=== PATIENT | female | born 1975 ===

== ENCOUNTER 2019-09-28 15:37 | Observation (INO) | payer SELFPAY ==
[2019-09-28 16:17] LABS: Mean Corpuscular HGB CONC 34.1 g/dL (32.0-36.0); Mean Corpuscular Hemoglobin 32.2 pg (27.0-31.0); Mean Corpuscular Volume 94.5 fL (78.0-98.0); Mean Platelet Volume 9.2 fL (7.4-10.4); Platelet Count 228 thou/uL (130-400); RBC Distribution Width 11.9 % (11.5-14.5); Red Blood Cell (RBC) Count 4.96 mill/uL (4.20-5.40); White Blood Cell (WBC) Count 15.7 thou/uL (4.8-10.8)
[2019-09-28 16:35] LABS: Band 4 % (5-11); Eosinophils 1 % (0-10); Lymphocytes 10 % (21-51); MDiff Complete? YES; Monocytes 2 % (0-10); Neutrophil 83 % (42-75); Platelet Morphology Comment Appears Adequate; RBC Morphology Normal
[2019-09-28 16:41] LABS: ALT (SGPT) 15 U/L (8-55); AST (SGOT) 16 U/L (5-34); Albumin 4.7 g/dL (3.5-5.0); Alkaline Phosphatase 89 U/L (40-110); Anion Gap 14 mmol/L (10-20); BUN (Urea Nitrogen) 14 mg/dL (7.0-18.7); Bilirubin, Total 0.5 mg/dL (0.2-1.2); CK (CPK) 61 U/L (29-168); Calc. Creatinine Clearance 0 mL/min (70-130); Calcium 9.5 mg/dL (7.8-10.44); Carbon Dioxide 24 mmol/L (22-29); Chloride 105 mmol/L (98-107); Estimated GFR-MDRD 85; Globulin 2.7 g/dL (2.4-3.5); Glucose 122 mg/dL (70-105); Potassium 4.2 mmol/L (3.5-5.1); Protein, Total 7.4 g/dL (6.0-8.3); Sodium 139 mmol/L (136-145)
--- NOTE | 2019-09-28 17:12 | RAD ---
Chest one view HISTORY: Chest pain. FINDINGS: No comparison. Cardiac silhouette is magnified by projection. Pulmonary vasculature are unr emarkable. Mediastinum is midline. No lobar consolidation or evidence of pneumothorax. Oval density projecting over the left axilla may represent artifact or a calcified lymph node. IMPRESSION: No active cardiopulmonary abnormalities are demonstrated.
[2019-09-28] MEDS ORDERED: Acetaminophen 500 MG TAB ONE ×2 (18:10→18:15)
[2019-09-28] MEDS ORDERED: Ondansetron PF 4 MG/2 ML Vial ONE (18:10)
[2019-09-28] MEDS ORDERED: Sucralfate 1 GM/10 ML UDCUP ONE (18:10)
[2019-09-28] MEDS ORDERED: Famotidine 20 MG TAB ONE (18:10)
[2019-09-28 20:26] LABS: Troponin I 0.019 ng/mL (< 0.028)
[2019-09-28] MEDS ORDERED: Dextrose 50% Abboject 50 ML SYRINGE SLOW IVP PRN (20:29)
[2019-09-28] MEDS ORDERED: HumaLOG 300 UNITS/3 ML VIAL SC PRN ×2 (20:29)
[2019-09-28] MEDS ORDERED: Dextrose 5% in Water 1,000 ML IV PRN (20:29)
[2019-09-28] MEDS ORDERED: Ondansetron ODT 4 MG TAB PO PRN (20:31)
[2019-09-28] MEDS ORDERED: Ondansetron PF 4 MG/2 ML Vial IVP PRN (20:31)
[2019-09-28 21:43] VITALS: BMI 26.8
[2019-09-28] MEDS: Famotidine/PF 20 mg/2ml Vial SLOW IVP SCH (22:10)
[2019-09-28] MEDS: Sodium Chloride 0.9% 1,000 ML IV SCH (22:12)
[2019-09-28 23:01] LABS: Lactic Acid 2.8 mmol/L (0.5-2.2)
--- NOTE | 2019-09-28 23:03 | HP ---
TIME OF ASSESSMENT: 1899. CHIEF COMPLAINT: Chest pain. HISTORY OF PRESENT ILLNESS: Ms. Chen is a 44-year-old woman, with a known history of CAD requiring stents 3 years ago following an PR, who presents with complaints of chest pain very similar to what she experienced 3 years ago with her first PR. The patient states the pain started while she was at work today and was in the center of her chest, substernal and nonradiating. Reports the pain was a 6/10 in severity and currently it is 2/10. The patient took 3 baby aspirins before coming into the emergency department. She recently moved from [place] and has not seen a [employer] school professional since approximately 6 months ago. She states last investigations done were about 2 years ago. She has known history of hypertension, which she states is under good control and also has diabetes mellitus for which she takes metformin but never checks her blood glucose. She also does not adhere to any strict diet. The patient states she did experience some associated diaphoresis. Reports feeling slightly lightheaded. Denies any associated shortness of breath. Denies any recent cough or hemoptysis. No lower leg swelling or calf tenderness. All other review of systems are negative. The patient states that she currently takes baby aspirin, Plavix, and statin. She was previously placed on medications which she was told it would help with her heart given the fact that she had small coronary artery vessels that could not be stented. She apparently had her second PR in August 2016. First PR was in February 2016 and she had 2 stents at that time to the LAD and OM. EMERGENCY DEPARTMENT COURSE: In the emergency department, the patient underwent an EKG that demonstrated normal sinus rhythm with a heart rate of 93. She had no ST changes or T-wave abnormalities. She was given sucralfate, famotidine, extra-strength Tylenol, and Zofran. LABORATORY STUDIES: Done showed a white count of 15.7, hemoglobin of 16, hematocrit of 46.8. Electrolytes unremarkable. BUN 14, creatinine 0.74, GFR 85. LFTs unremarkable. Initial and second troponin negative. Albumin 4.7, lipase 10. BNP 14.5. IMAGING DATA: Done included a chest x-ray which showed no active cardiopulmonary abnormalities. PAST MEDICAL HISTORY: 1. Coronary artery disease. 2. PR x2. 3. Hypertension. 4. Type 2 diabetes mellitus. 5. Heavy tobacco use. PAST SURGICAL HISTORY: Coronary artery stents x2, LAD and OM. FAMILY HISTORY: Her father of coronary artery disease. SOCIAL HISTORY: The patient denies any heavy alcohol use or illicit drug use. She does admit to smoking 1 pack per day for the last 15 years. PHYSICAL EXAMINATION: GENERAL: The patient appears well developed, well nourished, who is in no acute distress. VITAL SIGNS: Temperature 98.3, pulse 86, blood pressure 137/87, respirations 18 , O2 saturation 98% on room air. HEENT: Normocephalic and atraumatic. Pupils are equal, round, and reactive to light. Sclerae without icterus. Oropharynx is clear. NECK: Supple without lymphadenopathy. LUNGS: Clear to auscultation bilaterally without any wheezes, rales, or rhonchi. CARDIAC: Regular rate and rhythm. No audible murmurs, rubs, or gallops. No chest wall tenderness on palpation. LUNGS: Clear to auscultation bilaterally without any wheezes, rales, rhonchi. ABDOMEN: Soft, nontender, nondistended. Normoactive bowel sounds present. No guarding or rigidity. No renal angle tenderness. EXTREMITIES: No lower leg swelling or edema. NEUROLOGIC: Alert and oriented x3. No neuro deficits on exam. SKIN: Warm and dry. INVESTIGATIONS: As mentioned above in HPI. IMPRESSION AND PLAN: Ms. Chen is a pleasant 44-year-old woman who is being admitted for management of the following; 1. Acute coronary syndrome rule out. The patient with multiple risk factors including previous myocardial infarctions x2, coronary artery disease requiring 2 stents in the past with known occlusions that could not be addressed surgically. She was recommended medical management per [employer] school professional in [place]. The pain today is similar to which she experienced in the past with PR. Troponin negative x2. We will continue to trend troponins. Given her complicated history, we will need to obtain previous records and consultation is placed to Cardiology. The patient states her last echo was more than 10 years ago, therefore we will obtain an echo. We will check TSH, magnesium, and lipid panel. The patient is pain-free at present. We will keep her n.p.o. at midnight. 2. Hypertension. The patient states this is well controlled on current medications, which we will resume once verified. Continue to monitor blood pressure. 3. Type 2 diabetes mellitus. The patient does not check glucose at home. We will initiate insulin sliding scale, hold metformin and monitor blood glucose. 4. Leukocytosis. The patient's white count of 15.7, neutrophil of 83. We will obtain urinalysis and urine culture. Chest x-ray was negative. We will add on lactic acid. No clear source of infection at this present time. We will continue to monitor. 5. Gastrointestinal prophylaxis with famotidine. 6. Deep venous thrombosis prophylaxis with mechanical sequential compression devices. 7. Code status is full. Surrogate decision maker could not be established at this present time. Case to be discussed with attending for further recommendations. Job ID: [id number] MTDD
[2019-09-28 23:10] LABS: Troponin I 0.015 ng/mL (< 0.028)
[2019-09-29 00:20] LABS: Bacteria/HPF None Seen HPF (None Seen); Bilirubin Negative (Negative); Blood, Urine Negative (Negative); Clarity Clear (Clear); Glucose, Urine (Dipstick) Normal (Negative); Leukocyte Negative Leu/uL (Negative); Nitrite Negative (Negative); Protein, Urine (Dipstick) Negative (Neg-Trace); RBC/HPF 0-3 HPF (0-3); Squamous Epithelial 0-3 HPF (0-3); Urobilinogen Normal mg/dL (Less than 2); WBC/HPF 0-3 HPF (0-3)
[2019-09-29 00:22] LABS: Urine Culture Reflex No No
[2019-09-29 00:29] LABS: Amphetamine Not Detected (NotDetected); Barbiturates Screen Not Detected (NotDetected); Benzodiazepine Screen Not Detected (NotDetected); Cocaine Metabolite Screen Not Detected (NotDetected); Medtox Control Line Valid? VALID (VALID); Medtox Reader # READER 1; Methadone Not Detected (NotDetected); Methamphetamine Not Detected (NotDetected); Opiate Screen Not Detected (NotDetected); Oxycodone Screen Not Detected (NotDetected); Phencyclidine (PCP) Not Detected (NotDetected); THC/Cannabinoid Screen Not Detected (NotDetected); Tricyclic Screen Not Detected (NotDetected)
[2019-09-29 05:19] LABS: #Eosinphils 0.1 thou/uL (0.0-0.7); #Lymphocytes 1.3 thou/uL (1.20-3.40); #Monocytes 0.3 thou/uL (0.11-0.59); #Neutrophils 4.7 thou/uL (1.40-6.50); %Basophils 0.3 % (0.0-1.0); %Eosinophils 1.6 % (0.0-10.0); %Lymphocytes 19.6 % (21.0-51.0); %Monocytes 5.1 % (0.0-10.0); %Neutrophils 73.5 % (42.0-75.0); Hemoglobin 13.2 g/dL (12.0-16.0); Mean Corpuscular HGB CONC 32.6 g/dL (32.0-36.0); Mean Corpuscular Hemoglobin 31.1 pg (27.0-31.0); Mean Corpuscular Volume 95.3 fL (78.0-98.0); Mean Platelet Volume 9.5 fL (7.4-10.4); Platelet Count 184 thou/uL (130-400); Red Blood Cell (RBC) Count 4.25 mill/uL (4.20-5.40); White Blood Cell (WBC) Count 6.4 thou/uL (4.8-10.8)
[2019-09-29 05:35] LABS: Anion Gap 12 mmol/L (10-20); BUN (Urea Nitrogen) 9 mg/dL (7.0-18.7); Calc. Creatinine Clearance 127 mL/min (70-130); Calcium 8.4 mg/dL (7.8-10.44); Carbon Dioxide 21 mmol/L (22-29); Chloride 107 mmol/L (98-107); Estimated GFR-MDRD Greater than 90; Glucose 86 mg/dL (70-105); Potassium 3.5 mmol/L (3.5-5.1); Sodium 136 mmol/L (136-145)
[2019-09-29] MEDS: metFORMIN 500 MG TAB PO SCH ×2 (08:53→18:16)
[2019-09-29] MEDS: Famotidine/PF 20 mg/2ml Vial SLOW IVP SCH (08:53)
[2019-09-29] MEDS ORDERED: Clopidogrel Bisulfate 75 MG TAB PO SCH (09:00)
[2019-09-29] MEDS ORDERED: Aspirin 81 mg Enteric Coated Tablet PO SCH (09:00)
--- NOTE | 2019-09-29 11:52 | PDOC.HOSPP ---
- Subjective Encounter Date: 09/29/19 Encounter Time: 07:30 Subjective: Patient seen and examined. No new complaints. No overnight events - Objective Vital Signs & Weight: Vital Signs (12 hours) Temp Pulse Resp BP Pulse Ox 09/29/19 11:00 98.5 F 72 20 111/58 L 97 09/29/19 10:01 99 09/29/19 07:17 97.9 F 74 18 98/57 L 99 09/29/19 04:47 98.3 F 78 20 106/56 L 97 Weight Weight 150 lb 8 oz I&O: 09/28/19 09/29/19 09/30/19 06:59 06:59 06:59 Intake Total 760 Balance 760 Result Diagrams: 09/29/19 04:41 09/29/19 04:41 Additional Labs: Accuchecks 09/29/19 09/28/19 11:05 22:09 POC Glucose 86 166 H Radiology Reviewed by me: Yes EKG Reviewed by me: Yes Hospitalist ROS - Review of Systems ENT: denies: ear pain, ear discharge, nose pain, nose discharge, nose congestion , mouth pain, mouth swelling, throat pain, throat swelling, other Respiratory: denies: cough, dry, shortness of breath, hemoptysis, SOB with excertion, pleuritic pain, sputum, wheezing, other Cardiovascular: denies: chest pain, palpitations, orthopnea, paroxysmal noc. dyspnea, edema, light headedness, other Gastrointestinal: denies: nausea, vomiting, abdominal pain, diarrhea, constipation, melena, hematochezia, other Genitourinary: denies: dysuria, frequency, incontinence, hematuria, retention, other Musculoskeletal: denies: neck pain, shoulder pain, arm pain, back pain, hand pain, leg pain, foot pain, other - Medication Medications: Active Medications Generic Name Dose Route Start Last Admin Trade Name Freq PRN Reason Stop Dose Admin Aspirin 81 mg 09/29/19 09:00 09/29/19 08:53 Ecotrin PO 81 mg DAILY DIEGO Administration Clopidogrel Bisulfate 75 mg 09/29/19 09:00 09/29/19 08:53 Plavix PO 75 mg DAILY DIEGO Administration Famotidine 20 mg 09/28/19 21:00 09/29/19 08:53 Pepcid SLOW IVP 20 mg Q12HR DIEGO Administration Sodium Chloride 1,000 mls @ 65 mls/hr 09/28/19 20:45 09/28/19 22:12 Normal Saline 0.9% IV 1,000 mls .[id number] DIEGO Administration Metformin HCl 500 mg 09/29/19 08:00 09/29/19 08:53 Glucophage PO Not Given BID- DIEGO - Exam General Appearance: NAD, awake alert Eye: PERRL, anicteric sclera ENT: normocephalic atraumatic, no oropharyngeal lesions Neck: supple, symmetric, no JVD Heart: RRR, no murmur, no gallops, no rubs Respiratory: CTAB, no wheezes, no rales, no ronchi Gastrointestinal: soft, non-tender, non-distended, normal bowel sounds Extremities: no cyanosis, no clubbing, no edema Skin: normal turgor, no lesions Neurological: no focal deficits Musculoskeletal: normal tone, normal strength Psychiatric: normal affect, normal behavior Hosp A/P (1) Chest pain Code(s): R07.9 - CHEST PAIN, UNSPECIFIED Status: Acute (2) Diabetes type 2, controlled Code(s): E11.9 - TYPE 2 DIABETES MELLITUS WITHOUT COMPLICATIONS Status: Chronic 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
--- NOTE | 2019-09-29 15:45 | CON ---
DATE OF CONSULTATION: REASON FOR CONSULTATION: Atypical chest pain. HISTORY OF PRESENT ILLNESS: Ms. Chen is a 44-year-old woman with previous history of ME in 2016. She states she has undergone stent placement in the past. Since then, she had recurrent ME 6 months later, underwent coronary angiography, but was not treated with stent placement. The old records are not available. She recently states she had chest pain. It lasted all day. It was moderate in nature. She is now pain-free. There were no ameliorating, exacerbating, or precipitating factors present. The initial H and P did state she had diaphoresis, but she states she did not have diaphoresis, but more felt hot all over. Her CKs and troponins have been negative. Her EKG is within normal limits. PAST MEDICAL HISTORY: CAD, hypertension, diabetes mellitus, and tobacco abuse. SOCIAL HISTORY: As above. REVIEW OF SYSTEMS: A 10-point review of systems is reviewed as above, otherwise negative. PHYSICAL EXAMINATION: GENERAL: The patient is a pleasant female, who is in no acute distress. The patient appears their stated age. VITAL SIGNS: Blood pressure 111/58, pulse 72, and temperature 98.5. NEUROLOGIC: The patient is alert and oriented x3 with no focal neurologic deficits. HEENT: Sclerae without icterus. Mouth has moist mucous membranes with normal pallor. NECK: No JVD. Carotid upstroke brisk. No bruits bilaterally. LUNGS: Clear to auscultation with unlabored respirations. BACK: No scoliosis or kyphosis. CARDIAC: Regular rate and rhythm with normal S1 and S2. No S3 or S4 noted. No significant rubs, murmurs, thrills, or gallops noted throughout the precordium. PMI is not displaced. There is no parasternal heave. ABDOMEN: Soft, nontender, nondistended. No peritoneal signs present. No hepatosplenomegaly. No abnormal striae. EXTREMITIES: 2+ femoral and 2+ dorsalis pedis pulses. No cyanosis, clubbing, or edema. SKIN: No gross abnormalities. PERTINENT LABORATORY DATA: CK and troponin negative. Creatinine 0.6. IMPRESSION: 1. Atypical chest pain. 2. Coronary artery disease. 3. Status post stent placement. 4. Tobacco abuse. 5. Diabetes mellitus. RECOMMENDATIONS: I provided multiple options for Ms. Chen. I discussed proceeding with coronary angiography versus noninvasive stress study. Given negative enzymes, negative EKG, and atypical symptoms, we would prefer a noninvasive approach. She agrees. Further recommendations pending the above. I also counseled her on against the use of tobacco products. Job ID: [id number]
[2019-09-29 17:09] VITALS: BP 132/66; TEMP 97.5
--- NOTE | 2019-09-29 17:23 | NM ---
Radionucleotide stress and rest myocardial perfusion scan with CT attenuation correction and SPECT im aging Left ventricular wall motion evaluation and ejection fraction HISTORY: Chest pain. FINDINGS: Froy protocol. Test time 10:01. On the stress and rest images, there is a moderate sized a moy of markedly diminished radiotracer uptake involving the entire the of the lateral wall. No significant change from stress to rest images. No areas of reversibility apparent. QGS analysis of gated SPECT images shows diminished wall thickening and motion of the lateral wall. E jection fraction calculated at 58%. IMPRESSION: Large area of scar involving the lateral wall. No evidence of ischemia. Preserved LVEF.
[2019-09-29] MEDS: Sodium Chloride 0.9% 1,000 ML IV SCH (17:48)
--- NOTE | 2019-09-30 08:43 | DIS ---
DATE OF ADMISSION: 09/28/2019 DATE OF DISCHARGE: 09/29/2019 PRIMARY CARE PHYSICIAN: [facility] Call Admission. DISCHARGE DISPOSITION: Home. PRIMARY DISCHARGE DIAGNOSES: Chest pain. Ruled out acute coronary syndrome. SECONDARY DISCHARGE DIAGNOSES: History of myocardial infarction and coronary artery disease, diabetes type 2. PRIMARY PROCEDURE/OPERATION: None. RADIOLOGICAL INVESTIGATION: The patient had echocardiography. Result is pending. Stress test done which showed a large area of scar involving lateral wall. No evidence of ischemia. Chest x-ray was unremarkable. SIGNIFICANT LABORATORY DATA: WBC 6.4, hemoglobin 13.2, platelet 184. Creatinine 0.64. TSH 1.42. Urinalysis normal. Urine drug screen negative. DISCHARGE MEDICATION: 1. Aspirin 81 mg p.o. daily. 2. Metformin 500 mg p.o. b.i.d. 3. Plavix 75 mg p.o. daily. CONTRAINDICATION: None. CODE STATUS: Full code. 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 TEST RESULT PENDING ON DISCHARGE: None. ALLERGY: Sulfa drugs. DISCHARGE PLAN: Posthospital, the patient will follow up with primary care physician in 1 week. HOSPITAL COURSE: A 44-year-old female with above-mentioned medical problem, who was admitted by Brittnee Silva. Please see her H and P for further details. The patient was admitted for chest pain. Her initial workup was negative. EKG was unremarkable, but the patient has previous history of OK. Cardiac enzyme negative. The patient was admitted to telemetry floor for rule out ACS. Serial cardiac enzyme negative. Telemetry unremarkable. Cardiology was consulted. Cardiology ordered stress test. Stress test came back as a fixed defect, but without any reversible ischemia and Cardiology cleared her for discharge. Echocardiography result was not available by the time of this dictation. Leukocytosis she had on admission, which resolved. We added metoprolol 12.5 mg p.o. b.i.d. given her history of CAD. The patient ran out all her previous medication and that why is all medication prescription sent to her pharmacy. The patient was discharged yesterday and I saw this patient at bedside and please see my progress note from that day. Job ID: [id number]
== END 2019-09-29 18:02 | disposition home or self-care (01) ==
LOC: ERS 15:37 → 2SW 21:15
PROVIDERS: ADMIT Internal Medicine; ATTEND Internal Medicine
DX: R07.89 Other chest pain (principal); E11.9 Type 2 diabetes mellitus without complications; I10 Essential (primary) hypertension; I25.10 Atherosclerotic heart disease of native coronary artery without angina pectoris; I25.2 Old myocardial infarction; F17.210 Nicotine dependence, cigarettes, uncomplicated; D72.829 Elevated white blood cell count, unspecified; Z88.2 Allergy status to sulfonamides; Z95.5 Presence of coronary angioplasty implant and graft
CPT/HCPCS: 36415; 36416; 71045; 78452; 80048; 80053; 80306; 81001; 82550; 83036; 83605; 83690; 83735; 83880; 84145; 84443; 84484; 85025; 93005; 93017; 93306; 94760; 96361; 96374; 96375; A9500; G0378; J2405; S0028